=== PATIENT | male | born 1995 | race Two or more races ===

== ENCOUNTER 2016-03-21 18:23 | Emergency (ER) | payer BC ==
--- NOTE | 2016-03-21 18:53 | ER Document Report ---
ED Medical Screen (RME) - General Stated Complaint: RIGHT SIDE PAIN Notes: onset: thursday afternoon abdominal pain in RUQ, denies postprandial pain or greasy food +nausea, no vomiting tachycardic at 127 and febrile 100.7 I have greeted and performed a rapid initial assessment of this patient. A comprehensive ED assessment and evaluation of the patient, analysis of test results and completion of the medical decision making process will be conducted by additional ED providers.
[2016-03-21] MEDS ORDERED: ACETAMINOPHEN 325 MG TABLET PO ONE (18:54)
[2016-03-21] MEDS ORDERED: IBUPROFEN 600 MG TABLET PO ONE (22:10)
--- NOTE | 2016-03-21 22:13 | ER Document Report ---
ED General - General Chief Complaint: Abdominal Pain Stated Complaint: RIGHT SIDE PAIN Notes: Patient is a 20 year old male who presents with complaint of some pain in the right flank area. Says her long as right diaphragm. Some coughing. Some fevers. No vomiting. No diarrhea. No dysuria. He went to urgent care and had his urinalysis checked which was negative. He also had flu swab which was negative. They referred him here for an ultrasound to look at his kidney and gallbladder is because of the location of his pain. Patient has no chronic medical problems and is otherwise healthy. TRAVEL OUTSIDE OF THE [place] IN LAST 30 DAYS: No - Related Data Allergies/Adverse Reactions: No Known Allergies Allergy (Unverified 03/21/16 23:06) Past Medical History - Social History Smoking Status: Never Smoker Chew tobacco use (# tins/day): No Frequency of alcohol use: None Drug Abuse: None Family History: Reviewed & Not Pertinent Patient has suicidal ideation: No Patient has homicidal ideation: No Renal/ Medical History: Denies: Hx Peritoneal Dialysis Review of Systems - Review of Systems Notes: My Normal Review Basic REVIEW OF SYSTEMS: CONSTITUTIONAL : Fevers EENT: Denies eye, ear, throat, or mouth pain or symptoms. Denies nasal or sinus congestion. CARDIOVASCULAR: Denies chest pain. RESPIRATORY: Cough GASTROINTESTINAL: Right flank pain. Denies nausea, vomiting, or diarrhea. Denies constipation. Last BM: GENITOURINARY: Denies difficulty urinating, painful urination, burning, frequency, or blood in urine. FEMALE GENITOURINARY: Denies vaginal bleeding, abnormal or irregular periods. LMP: MUSCULOSKELETAL: Denies neck or back pain or joint pain or swelling. SKIN: Denies rash or skin lesions. NEUROLOGICAL: Denies altered mental status or loss of consciousness. Denies headache. Denies weakness or paralysis or loss of use of either side. Denies problems with gait or speech. Denies sensory or motor loss. ALL OTHER SYSTEMS REVIEWED AND NEGATIVE. Physical Exam - Vital signs Vitals: Temp Pulse Resp BP Pulse Ox 98.6 F 91 H 16 118/75 100 03/21/16 23:01 03/21/16 23:01 03/21/16 23:01 03/21/16 23:01 03/21/16 23:01 - Notes Notes: General Appearance: Well nourished, alert, cooperative, no acute distress, no obvious discomfort. Well-appearing Vitals: reviewed, See vital signs table. Head: no swelling or tenderness to the head Eyes: PERRL, EOMI, Conjuctiva clear Mouth: No decreasd moisture Throat: No tonsillar inflammation, No airway obstruction, No lymphadenopathy Ears: Normal appearing tympanic membranes. Neck: Supple, no neck tenderness, No thyromegaly Lungs: No wheezing, No rales, No rhonci, No accessory muscle use, good air exchange bilaterally. Heart: Normal rate, Regular rythm, No murmur, no rub Abdomen: Normal BS, soft, No rigidity, No producible abdominal tenderness, No guarding, no rebound, no abdominal masses, no organomegaly Extremities: strength 5/5 in all extremities, good pulses in all extremities, no swelling or tenderness in the extremities, no edema. Skin: warm, dry, appropriate color, no rash Neuro: speech clear, oriented x 3, normal affect, responds appropriately to questions. Course - Vital Signs Vital signs: Temp Pulse Resp BP Pulse Ox 98.6 F 91 H 16 118/75 100 03/21/16 23:01 03/21/16 23:01 03/21/16 23:01 03/21/16 23:01 03/21/16 23:01 - Laboratory Result Diagrams: 03/21/16 22:00 03/21/16 22:00 Laboratory results interpreted by me: 03/21/16 22:00 Total Bilirubin 1.4 H - Transfer of Care Notes: 03/22/16 00:52 I'm not exactly sure the cause of patient's right flank pain. It's minimal and not really bothers some tumor at this time. No reproducible palpation. He does have a low-grade fever which has since resolved. He looks very well. Chest x-ray showed no evidence of pneumonia in this area. Agapito the gallbladder was normal. He had a urinalysis performed urgent care which was completely normal. His blood work ears normal. Fairly safe to be discharged home. I encourage her to return to ER immediately if he has worsening pain, fevers, vomiting, abdominal pain, difficulty breathing, or if has any further concerns. Patient agrees with plan and will be discharged home. Dictation of this chart was performed using voice recognition software; therefore, there may be some unintended grammatical errors. Discharge - Discharge Clinical Impression: Flank pain Fever Qualifiers: Fever type: unspecified Qualified Code(s): R50.9 - Fever, unspecified Condition: Good Disposition: HOME, SELF-CARE Additional Instructions: Please return to the ER immediately if you have worsening fevers, worsening pain , difficulty breathing, vomiting, abdominal pain, or if you feel unwell. Your chest x-ray showed no evidence of pneumonia. Your ultrasound showed a normal gallbladder. Your blood work showed no significant abnormalities. Please follow-up with a doctor for reevaluation in 2-3 days. Dictation of this chart was performed using voice recognition software; therefore, there may be some unintended grammatical errors. Forms: Return to Work
[2016-03-21 22:18] LABS: ABSOLUTE LYMPHOCYTES (AUTO) 1.2 10^3/uL (0.5-4.7); ABSOLUTE NEUT (AUTO) 6.2 10^3/uL (1.7-8.2); BASOPHILS % (AUTO) 0.2 % (0-2); EOSINOPHILS % (AUTO) 0.4 % (0-6); HEMATOCRIT 47.6 % (37.9-51.0); HGB HCT DIFFERENCE 0.4; LYMPHOCYTES % (AUTO) 14.3 % (13-45); MEAN CORPUSCULAR HEMOGLOBIN 29.1 pg (27.0-33.4); MEAN CORPUSCULAR HGB CONC 33.5 g/dL (32.0-36.0); MEAN CORPUSCULAR VOLUME 87 fl (80-97); MONOCYTES % (AUTO) 11.6 % (3-13); RED BLOOD COUNT 5.49 10^6/uL (4.35-5.55); RED CELL DISTRIBUTION WIDTH 12.9 % (11.5-14.0); SEGMENTED NEUTROPHILS % (AUTO) 73.5 % (42-78); WHITE BLOOD COUNT 8.4 10^3/uL (4.0-10.5)
[2016-03-21 22:32] LABS: ALANINE AMINOTRANSFERASE 36 U/L (10-40); ALBUMIN 5.2 g/dL (3.7-5.6); ALKALINE PHOSPHATASE 66 U/L (65-260); ANION GAP 15 (5-19); ASPARTATE AMINO TRANSFERASE 25 U/L (10-45); BILIRUBIN,TOTAL 1.4 mg/dL (0.2-1.3); BLOOD UREA NITROGEN 12 mg/dL (7-20); CALCIUM 10.2 mg/dL (8.4-10.2); CARBON DIOXIDE 27 mmol/L (22-30); CHLORIDE 100 mmol/L (98-107); CREATININE RESULT 0.85 mg/dL (0.52-1.25); GLUCOSE 103 mg/dL (75-110); LIPASE 88.3 U/L (23-300); POTASSIUM 3.7 mmol/L (3.6-5.0); TOTAL PROTEIN 8.2 g/dL (6.3-8.2)
[2016-03-22 01:45] VITALS: BP 121/69
== END 2016-03-22 01:35 | disposition home or self-care (01) ==
LOC: ER 18:23
DX: R50.9 Fever, unspecified (principal); R10.9 Unspecified abdominal pain
CPT/HCPCS: 36415; 71020; 76705; 80053; 83690; 85025; 93976; 99284